=== PATIENT | female | born 1980 | race Caucasian/White ===

== ENCOUNTER 2019-02-25 04:44 | Emergency (ER) | payer MEDICAID ==
[~2019-02-25] VITALS: Ht 154.9 cm; Wt 72.6 kg
[2019-02-25 04:48] VITALS: Ht 154.9 cm; Wt 72.6 kg
[2019-02-25 06:06] LABS: PLATELET COUNT 274 x10^3mcL (130-400); RED CELL DISTRIBUTION WIDTH 13.7 % (11.5-14.5)
[2019-02-25 06:15] LABS: CALCIUM 9.4 mg/dL (8.5-10.1); CHLORIDE SERUM 109 mmol/L (98-107); CREATININE SERUM 0.9 mg/dL (0.6-1.0); GFR1 > 60 mL/min; GLUCOSE SERUM 102 mg/dL (74-106); POTASSIUM SERUM 4.6 mmol/L (3.5-5.1); SODIUM SERUM 141 mmol/L (136-145)
[2019-02-25 06:19] LABS: ALBUMIN 3.4 g/dL (3.4-5.0); ALKALINE PHOSPHATASE 86 U/L (46-116); ALT/SGPT 31 U/L (14-59); AST/SGOT 18 U/L (15-37); BILIRUBIN TOTAL 0.2 mg/dL (0.20-1.00); LIPASE 113 IU/L (73-393); TOTAL PROTEIN, SERUM 7.2 g/dL (6.4-8.2)
[2019-02-25 08:06] VITALS: BP 141/78
== END 2019-02-25 08:06 | disposition home or self-care (01) ==
LOC: ED 04:44
PROVIDERS: Emergency Medicine
DX: K80.20 Calculus of gallbladder without cholecystitis without obstruction (principal); I10 Essential (primary) hypertension; Z88.0 Allergy status to penicillin
CPT/HCPCS: J1885; J2270; J2405; J7030; Q0092

== ENCOUNTER 2019-03-08 01:01 | Inpatient (IN) | payer MEDICAID ==
[~2019-03-08] VITALS: Ht 152.4 cm; Wt 72.3 kg
[2019-03-08 01:16] VITALS: Ht 152.4 cm; Wt 72.3 kg
--- NOTE | 2019-03-08 01:40 | NUR ---
PT PRESENTS TO THE ED TODAY WITH C/C OF RIGHT UPPER QUADRANT ABD PAIN FOR APPROXIMATELY 12 HOURS. PT REPORTS PAIN RADIATES TO HER RIGHT FLANK. DENIES ANY DYSURIA. PT DOES REPORT THAT SHE HAS GALLBLADDER "PROBLEMS." +N/V/D. PT IS AWAKE AND ALERT, RESP E/U, NAD NOTED. AWAITING MSE.
--- NOTE | 2019-03-08 02:06 | NUR ---
REPORT GIVEN TO DONTRELL MARQUEZ TO ASSUME CARE FOR PT.
--- NOTE | 2019-03-08 02:27 | NUR ---
MSE COMPLETED BY . PT STATES TO PAIN IS MORE THAN 10/10 AT THIS TIME. PT A&OX4,NO ACUTE DSITRESS NOTED, RESP EVEN AND UNLABORED, LAYING IN POSITION OF COMFORT. PT JUST RETURNED FROM RESTROOM AFTER VOMITING. PT PROVIEDED WITH EMESIS BAG AT THSI TIME.
[2019-03-08 02:56] LABS: BASOPHIL % 0.4 % (0-2); PLATELET COUNT 329 x10^3mcL (130-400); RED CELL DISTRIBUTION WIDTH 13.4 % (11.5-14.5)
[2019-03-08 02:58] LABS: CARBON DIOXIDE 24.6 mmol/L (21-32); CHLORIDE SERUM 105 mmol/L (98-107); CREATININE SERUM 0.9 mg/dL (0.6-1.0); GFR1 > 60 mL/min; GLUCOSE SERUM 100 mg/dL (74-106); POTASSIUM SERUM 3.9 mmol/L (3.5-5.1); SODIUM SERUM 138 mmol/L (136-145)
--- NOTE | 2019-03-08 03:02 | NUR ---
ULTRASOUND AT BEDSIDE.
[2019-03-08 03:03] LABS: ALBUMIN 3.9 g/dL (3.4-5.0); ALKALINE PHOSPHATASE 79 U/L (46-116); ALT/SGPT 27 U/L (14-59); AMYLASE 43 U/L (25-115); AST/SGOT 22 U/L (15-37); BILIRUBIN TOTAL 0.3 mg/dL (0.20-1.00); LIPASE 114 IU/L (73-393); TOTAL PROTEIN, SERUM 7.9 g/dL (6.4-8.2)
--- NOTE | 2019-03-08 03:48 | NUR ---
PT STATES EPIGASTRIC PAIN IS 0/10, HOWEVER REMAINS TO HAVE PAIN TO RIGHT UPPER ABD 7/10 AT THIS TIME. ASKED PT IF SHE WOULD LIKE TO HAVE THE MOPRHINE THE PHYSICIAN HAD ORDERED. PT REFUSED.
--- NOTE | 2019-03-08 04:45 | NUR ---
PT LAYING IN POSTIION OF COMFORT,NO LONGER VOMITING. PT STATES TO 4/10 PAIN TO RIGHT UPPER ABD.
--- NOTE | 2019-03-08 05:50 | NUR ---
AT BEDSIDE FOR PLAN OF CARE.
--- NOTE | 2019-03-08 06:05 | NUR ---
PT DOES NOT RECALL HOME HTN MEDICATION.
--- NOTE | 2019-03-08 06:34 | NUR ---
PT. AMBULATATED TO THE RESTROOM WITH STEADY GAIT,
--- NOTE | 2019-03-08 06:44 | NUR ---
PT AMBULATED TO AND FROM RESTROOM WITH STEADAY GAIT.
--- NOTE | 2019-03-08 07:30 | NUR ---
REPORT CALLED TO DONTRELL PRITCHARD TO ASSUME CARE OF PT.
--- NOTE | 2019-03-08 07:43 | NUR ---
PT TRANSFERRED TO MED/SURG BED 258B VIA GURNEY WITH EMT DONY. PT A&OX4, NO ACUTE DISTRESS NOTED, RESP EVEN AND UNLABORED. TRANSFERRED WITH OUT INCIDENCE.
--- NOTE | 2019-03-08 08:15 | NUR ---
ADMITTED THIS 38 Y/O FEMALE FROM ER VIA [facility] FOR RUQ PAIN, NAUSEA, VOMITING. ALERT AND ORIENTED X4. STATED " PAIN IS 4/10 ( "BETTER NOW"). ADMISSION CARE DONE. REVIEWED USE OF BED CONTROLS, USE OF CALL LIGHT AND CONTROLS, AND WHERE THE BATHROOM IS. STATED UNDERSTANDING. CALL PANIAGUA WITHIN REACH. BED LOW AND LOCKED.
--- NOTE | 2019-03-08 08:53 | NUR ---
SEEN BY REMY CAZARES. NS AT 100CC/HR INITIATED. NPO INSTRUCTED TO PATIENT.
[2019-03-08 11:31] VITALS: BP 139/91
--- NOTE | 2019-03-08 12:53 | NUR ---
IN BED RESTING. SON VISITED. DENIES ANY DISCOMFORT.
--- NOTE | 2019-03-08 14:49 | NUR ---
FAMILY VISITING AT THIS TIME. DENIES ANY DISCOMFORT AT THIS TIME. TOLARATED FULL LIQUID LUNCH.
[2019-03-08 16:57] VITALS: BP 139/74
--- NOTE | 2019-03-08 18:20 | NUR ---
DENIES ANY PAIN OR NAUSEA.
[2019-03-08 19:17] VITALS: BP 133/77
--- NOTE | 2019-03-08 19:48 | NUR ---
AWAKE AND ALERT, ORIENTED TO NAME, PLACE, TIME AND SITUATION. SPEECH CLEAR AND APPROPRIATE. HOB ELEVATED 30 DEG. BREATHING EVEN AND UNLABORED ON ROOM AIR. DENIES HAVING ABD PAIN OR NAUSEA AT THIS TIME. FAMILY MEMBERS IN ROOM. IVF INFUSING WELL.
--- NOTE | 2019-03-08 22:46 | NUR ---
awake and alert, breathing even and unlabored. ivf infusing well. denies having abd pain at this time. call light within easy reach. instructed need urine specimen. family members in room.
[2019-03-08 23:54] LABS: microscopic required? NO
[2019-03-09 00:05] LABS: urine erythrocyte NEGATIVE (NEGATIVE)
[2019-03-09 00:46] LABS: AMPHETAMINE QUAL UR NONE DETECTED (See below)
[2019-03-09 05:58] VITALS: BP 136/83
--- NOTE | 2019-03-09 06:13 | NUR ---
awake and alert, breathing even and unlabored. denies having pain. ivf infusing well. iv site free from erythema or swelling.
--- NOTE | 2019-03-09 07:15 | NUR ---
RECEIVED PT FROM NIGHT NURSE. PT IS LAYING DOWN IN BED WITH HOB UP. PT LOOKS TO BE IN NO ACUTE DISTRESS AND DENIES ANY PAIN AT THIS TIME. IV SITE PATENT WITH NO SIGNS OF ERYTHEMA OR SWELLING. RESPIRATIONS EVEN AND UNLABORED ON ROOM AIR. BED IN LOWEST POSITION, CALL LIGHT WITHIN REACH. WILL CONTINUE TO MONITOR.
--- NOTE | 2019-03-09 07:24 | NUR ---
AWAKE AND ALERT, IN NO ACUTE DISTRESS. ENDORSED TO NURSE KATHERINE
[2019-03-09 08:09] VITALS: BP 136/90
--- NOTE | 2019-03-09 15:20 | NUR ---
PT IS LAYING DOWN IN BED WITH HOB UP TALKING WITH FAMILY. PT LOOKS TO BE IN NO ACUTE DISTRESS AT THIS TIME AND DENIES ANY PAIN. IV SITE PATENT WITH NO SIGNS OF ERYTHEMA OR SWELLING WITH IV FLUIDS INFUSING. FAMILY MEMBERS AT BEDSIDE. CALL LIGHT WITHIN REACH. WILL CONTINUE TO MONITOR.
--- NOTE | 2019-03-09 17:10 | NUR ---
PT IS LAYING DOWN IN BED WITH HOB UP TALKING WITH FAMILY MEMBER. PT LOOKS TO BE IN NO ACUTE DISTRESS AT THIS TIME. FINISHED PUSHING IV HYDRALYZINE. FAMILY MEMBERS AT BEDSIDE. WILL ENDORSE TO ONCOMING SHIFT.
[2019-03-09 18:15] VITALS: BP 160/103
--- NOTE | 2019-03-09 18:20 | NUR ---
NOTIFIED OF HIGH BLOOD PRESSURE.
[2019-03-09 19:16] VITALS: BP 145/90
[2019-03-09] MEDS ORDERED: EPZICOM1 TAB (19:22)
[2019-03-09] MEDS ORDERED: TRA100 PO (19:22)
--- NOTE | 2019-03-09 19:27 | NUR ---
PT'S FAMILY MEMBER SHOWED PT HOME MEDICATION PILL BOTTOLE. PT TAKES LABETALOL 100MG TID. UPDATED MEDICATION RECONCILIATION. INFORMED DR. NOLASCO.
--- NOTE | 2019-03-09 20:00 | NUR ---
AWAKE AND ALERT, ORIENTED TO NAME, PLACE, TIME AND SITUATION. SPEECH CLEAR AND APPROPRIATE. BREATHING EVEN AND UNLABORED ON ROOM AIR. BP 145/90, SC 74 POST HYDRALAZINE IVP BY DAY SHIFT NURSE. TELEBOX RETURNED TO MONITOR STATION. IVF INFUSING WELL. FAMILY MEMBERS IN ROOM.
--- NOTE | 2019-03-09 22:55 | NUR ---
awake and alert, watching tv. breathing even and unlabored on room air. call light within easy reach.
[2019-03-10 04:42] VITALS: BP 121/82
--- NOTE | 2019-03-10 07:10 | NUR ---
RECEIVED REPORT FROM ERASMO JON, PT IN BED IN NO ACUTE DISTRESS
--- NOTE | 2019-03-10 07:20 | NUR ---
AWAKE AND ALERT, BREATHING EVEN AND UNLABORED. IN NO ACUTE DISTRESS. ENDORSED TO NURSE THI
--- NOTE | 2019-03-10 07:25 | NUR ---
PT IN BED, AXOX4, VERBAL, IN NO ACUTE DISTRESS, ABLE TO MAKE NEEDS KNOWN, CALM AT THIS TIME, NO FACIAL DROOP/SLURRED SPEECH, DENIED PAIN/DISCOMFORT, DENIED KUHN/CP/PALPITATION, DENIED N/V/D, RESP EVEN, NO SOB/COUGH, CHEST RISE SYMMETRICALLY, MEDSURG, ABD FLAT AND NON-TENDER TO TOUCH, BS ACTIVE X 4, PALP PULSES, CAP REFILL < 3S, AMBULATORY, CONTINENT, IV PATENT AND FLUSHING WELL, DRESSING CDI, SKIN C/D/W, SEE SKIN ASSESSMENT, ALL NEEDD ADRESSED AT THIS TIME, SAFETY PROTOCOL FOLLOWED, CONTINUE TO MONITOR
[2019-03-10 07:51] LABS: CALCIUM 9.3 mg/dL (8.5-10.1); CARBON DIOXIDE 25.7 mmol/L (21-32); CHLORIDE SERUM 107 mmol/L (98-107); CREATININE SERUM 0.9 mg/dL (0.6-1.0); GFR1 > 60 mL/min; GLUCOSE SERUM 79 mg/dL (74-106); POTASSIUM SERUM 3.8 mmol/L (3.5-5.1); SODIUM SERUM 141 mmol/L (136-145)
[2019-03-10 07:55] LABS: BASOPHIL % 0.5 % (0-2); PLATELET COUNT 294 x10^3mcL (130-400); RED CELL DISTRIBUTION WIDTH 13.6 % (11.5-14.5)
[2019-03-10 08:04] VITALS: BP 127/84
--- NOTE | 2019-03-10 09:55 | NUR ---
AM MEDGIVEN PER EMAR, TAKEN WELL, NO ASE NOTED AT THIS TIME, EDUCATION R/T MED, ASE AND CONDITION GIVEN TO PT, VERBALLY UNDERSANDING, CONTINUE TO MONITOR
--- NOTE | 2019-03-10 10:39 | NUR ---
DR PINEDA CALLED R/T PT NEW ORDER, NEW ORDER OBTAINED, PT MADE AWARE OF NPO UNTILN FURTHER NOTICE AND HIDA SCAN STAT, CHARGE NURSE CRISTIANA MADE AWARE
--- NOTE | 2019-03-10 11:17 | NUR ---
NUCLEAR STAFF CALLED AND CONFIRM HIDA SCAN WILL BE DOEN AT 1600 TODAY, PT MADE AWARE
--- NOTE | 2019-03-10 14:23 | NUR ---
PT SLEEPING IN BED, IN NO APPARENT DISTRESS, IV INFUSING WELL, CONTINUE TO MONITOR
--- NOTE | 2019-03-10 16:07 | NUR ---
Discount pharmacy card and list to low cost medical clinics given to patient by Martina.
--- NOTE | 2019-03-10 16:09 | NUR ---
PT WENT FOR HIDA SCAN VIA WC, PT IN NO ACUTE DISTRESS, HEPLOCKED
[2019-03-10 16:51] VITALS: BP 133/80
--- NOTE | 2019-03-10 17:42 | NUR ---
RECEIVED REPORT FROM RADIATION DEPARTMENT RN R/T HIDA SCAN PROGRESS, PT WILL NEED TO HAVE DELAYED PICTURE TAKEN AGAINN LATER D/T GALLBLADDER DID NOT SHOW ON PICTURE AT 1ST TIME, DR PINEDA TALKED TO PT IN RADIATION DEPARTMENT,
--- NOTE | 2019-03-10 17:52 | NUR ---
PT BACK TO ROOM, IN NO ACUTE DISTRESS, VOID X 1
--- NOTE | 2019-03-10 18:04 | NUR ---
CALLED AND TALKED TO BLADE GRADER OPERATOR YIN CANCINO R/T PT NPO STATUS SINCE LUNCH FOR POSSIBLE SURERY TOMORROW MORNING, NEW ORDER OBTAINED, PT MADE AWARE, CONTINUE TO MONITOR
--- NOTE | 2019-03-10 18:34 | NUR ---
PT LEFT FOR HIDA SCAN VIA WC, IN NO ACUTE DISTRESS, DENIED PAIN/DISCOMFORT AT THIS TIME
--- NOTE | 2019-03-10 19:45 | NUR ---
RECEIVED PT IN BED WITH FAMILY AT BEDSIDE. PT IS AWAKE, ALERT, ORIENTED X4. LUNG SOUNDS CLEAR. BREATHING EASILY ON ROOM AIR. BS ACTIVE IN ALL FOUR QUADS. ABD IS OBESE NON DISTENDED. NO ABD PAIN NOTED. PT IS VOIDING FREELY WITH BRP. IV TO LAC, INTACT. SHIFT ASSESSMENT COMPLETED. CALL LIGHT WITHIN REACH. BED IS IN LOWEST POSITION. WILL CONTINUE TO MONITOR CLOSELY.
--- NOTE | 2019-03-10 20:15 | NUR ---
D5NS HUNG AT THIS TIME TO LAC, INFUSING WELL AT THIS TIME.
[2019-03-10 20:56] VITALS: BP 128/84
--- NOTE | 2019-03-10 21:10 | NUR ---
LEFT MESSAGE FOR DR. PINEDA CONCERNING RESULTS FOR HIDA SCAN. AWAITING CALL BACK.
--- NOTE | 2019-03-10 21:25 | NUR ---
DR PINEDA CALLED BACK AND IS AWARE OF HIDA SCAN RESULTS. KEEP PT NPO ACCEPT MEDS AFTER MIDNIGHT. PT AWARE. WILL CONTINUE TO MONITOR CLOSELY.
--- NOTE | 2019-03-11 03:58 | NUR ---
PT APPEARS TO BE SLEEPING IN NO DISTRESS. IVF ONGOING. CALL LIGHT WITHIN REACH. BED IS IN LOWEST POSITION. WILL CONTINUE TO MONITOR CLOSELY.
[2019-03-11 05:13] VITALS: BP 107/71
--- NOTE | 2019-03-11 06:30 | NUR ---
CHECK LIST STARTED. CONSENT PRINTED AND IN CHART. HCG WIPES GIVEN TO PT, CURRENTLY USING THEM AT THIS TIME. ALL NEEDS TENDED TO. WILL ENDORSE TO INCOMING SHIFT.
[2019-03-11 06:45] LABS: BASOPHIL % 0.7 % (0-2); PLATELET COUNT 286 x10^3mcL (130-400); RED CELL DISTRIBUTION WIDTH 13.4 % (11.5-14.5)
--- NOTE | 2019-03-11 06:55 | NUR ---
OR TRANSPORT HERE TO [facility]. IV HL. PT BELONGINGS KEPT IN ROOM. PT LEAVES IN NO DISTRESS.
[2019-03-11 07:11] LABS: CALCIUM 9.5 mg/dL (8.5-10.1); CARBON DIOXIDE 26.1 mmol/L (21-32); CHLORIDE SERUM 108 mmol/L (98-107); GFR1 > 60 mL/min; GLUCOSE SERUM 91 mg/dL (74-106); POTASSIUM SERUM 4.2 mmol/L (3.5-5.1); SODIUM SERUM 141 mmol/L (136-145)
--- NOTE | 2019-03-11 07:20 | NUR ---
PT REPORT RECIEVED BUT PT IS CURRENTLY IN OR FOR SURGERY, PT WENT DOWN AT 0630 PER NOC NURSE. WILL F/U.
--- NOTE | 2019-03-11 09:06 | NUR ---
ALL MORNING MEDS HELD AND NOT ABLE TO SCAN PT D/T PT STILL IN OR FOR SURGERY.
--- NOTE | 2019-03-11 10:30 | NUR ---
PT RECIEVED FROM OR NURSE GILLETTE S/P SINDI PEGUERO. PT STABLE, VS WNL. PT ON 3 LMP NC AT THIS TIME WITH NO SOB NOTED. PT STILL ASLEEP FROM PAIN MEDS GIVEN IN OR. X4 ABD INCISIONS NOTED, CLOSED WITH DERMABOND. NO DRAINAGE OR REDNESS NOTED TO SITES. SAFETY PRECAUTIONS IN PLACE, CALL LIGHT WITHIN REACH, WILL MONITOR.
[2019-03-11 14:33] VITALS: BP 159/87
--- NOTE | 2019-03-11 14:44 | NUR ---
DILAUDID GIVEN PER EMAR FOR C/O 10 ABD PAIN. WILL REASSESS.
[2019-03-11 17:18] VITALS: BP 131/84
--- NOTE | 2019-03-11 17:30 | NUR ---
NORCO GIVEN FOR C/O 12/25 ABD PAIN. WILL REASSESS.
--- NOTE | 2019-03-11 18:43 | NUR ---
PT STABLE AT THIS TIME. NO DISTRESS NOTED. VS WNL AND ALL CARES TOLERATED WELL. ABD INCISIONS INTACT, CLEAR, AND DRY. IV INTACT AND PATENT WITH D5NS RUNNING AT 80ML/HR, NO REDNESS OR INFLAMMATION NOTED. A/O X4 WITH NO KUHN OR DIZZINESS.SAFETY PRECAUTINS IN PLACE, CALL LIGHT WITHIN REACH, WILL ENDORSE TO NIGHT NURSE.
--- NOTE | 2019-03-11 19:30 | NUR ---
PT IS A/O x4. ON MED SURG. DENIES ANY CHEST PAIN OR PRESSURE. PULSES ARE PRESENT. NO EDEMA NOTED. LUNGS ARE CLEAR IN ALL FEILDS. ON RA, DENIES ANY SOB. EQUAL CHEST RISE AND FALL. NO SIGN OF RESP DISTRESS. BOWEL SOUNDS ACTIVE. COMPLAIN OF ABD PAIN D/T POST OP LAP SUDHIR TODAY. 03/27 PAIN, SHARP. NON RADIATING. WILL MEDICATE PER EMAR. 4 ABD INCISIONS NOTED. CLOSED WITH DERMABOND. NO DRAINGE NOTED. IV ON LAC INTACT AND PATENT. NO SIGN OF INFILTRATION OR IRRITATION. FAMILY IS AT BEDSIDE. EDUCATION PROVIDED TO PT ABOUT POST LAP SUDHIR CARE AND IT IS IMPORTANT FOR THE PT TO AMBULATE. WILL CONTINUE TO MONTIOR.
[2019-03-11 20:42] VITALS: BP 131/86
--- NOTE | 2019-03-11 22:12 | NUR ---
PT GOT UP TO AMBULATE WITH FAMILY AFTER PAIN MEDICATION WAS GIVEN. PT THREW UP IN THE [address] WAY. WAS ASSITED BACK INTO HER ROOM. PT STATED HER THROWING UP ALIVIATED THE DISCOMFORT IN HER STOMACH. OFFERED PT ZOFRAN BUT SHE REFUSED. PT STATES SHE JUST WANTS TO REST. BED IS AT LOWEST SETTING. ICE WAS OFFERED. WILL CONTINUE TO [facility].
--- NOTE | 2019-03-12 00:52 | NUR ---
PT IS RESTING IN BED WITH BOTH EYES CLOSED. BREATHING EVEN AND UNLABORED. NO SIGN OF DISTRESS NOTED. BED IS AT LOWEST SETTING. CALL LIGHT WITHIN REACH. WILL CONTINUE TO MONITOR.
--- NOTE | 2019-03-12 02:36 | NUR ---
PT REQUESTING PAIN SHOT, VS STABLE. PAIN 9/10. MEDICATED WITH DILAUDID 1MG IVP SLOW, IV SITE ON LT AC, NO S/S INFILTRATION. CALL LIGHT WITHIN REACHED.
[2019-03-12 05:12] VITALS: BP 118/67
--- NOTE | 2019-03-12 06:14 | NUR ---
PT IS RESTING IN BED WITH BOTH EYES CLOSED. BREATHING EVEN AND UNLBORED. NO SIGN OF DISTRESS NOTED. NO ACUTE EVENT OCCURED AT NIGHT. BED IS AT LOWEST SETTING. CALL LIGHT WITHIN REACH. WILL ENDORSE TO AM NURSE.
[2019-03-12 06:47] LABS: BASOPHIL % 0.3 % (0-2); PLATELET COUNT 293 x10^3mcL (130-400); RED CELL DISTRIBUTION WIDTH 13.8 % (11.5-14.5)
[2019-03-12 07:12] LABS: BILIRUBIN TOTAL 0.4 mg/dL (0.20-1.00); CALCIUM 9.6 mg/dL (8.5-10.1); CARBON DIOXIDE 25.3 mmol/L (21-32); CREATININE SERUM 1.1 mg/dL (0.6-1.0); POTASSIUM SERUM 4.9 mmol/L (3.5-5.1); TOTAL PROTEIN, SERUM 6.6 g/dL (6.4-8.2)
[2019-03-12 07:14] LABS: ALBUMIN 3.1 g/dL (3.4-5.0)
--- NOTE | 2019-03-12 07:20 | NUR ---
RECEIVED PT FROM MARILEE RN. PT AA/OX4, LAYING IN BED. NO S/S OF ACUTE DISTRESS. SPEAKS [place]. DENIES PAIN AT THIS TIME. NO SOB ON ROOM AIR. EDUCATED ON USE/PURPOSE OF I.S. VERBALIZED UNDERSTANDING, REACHING 500ML, GOAL 1000ML. MED SURG. NO CHEST PAIN. LUNG SOUNDS CTA BILATERALLY ON ROOM. RR EVEN/SHALLOW/UNLABORED. DENIES ABD. PAIN AT THIS TIME. REPORTS INTERMITTENT N/V. DENIES AT THIS TIME. AMBULATORY WITH FULL ROM GAIT STEADY. VOIDS FREELY. ABD. INCISIONS X4, S/P LAP SUDHIR ON 03/11. APPEAR CLEAN/DRY, SKIN COLOR SURROUNDING WOUNDS APPEARS NORMAL FOR ETHNICITY. IV WNL TO LAC, PATENT AND FLUSHES WELL. SITE WNL. IV FLUIDS FLOWING. INSTRUCTED TO USE CALL LIGHT TO CALL FOR ASSISTANCE PRN. VERBALIZED UNDERSTANDING. BED IN LOW POSITION. CALL LIGHT WITHIN REACH. SIDE RAILS UPX 2. WILL CONTINUE TO MONITOR.
[2019-03-12 08:06] VITALS: BP 117/66
[2019-03-12 11:46] VITALS: BP 123/76
--- NOTE | 2019-03-12 12:00 | NUR ---
PT AMBULATED IN HALLWAYS AND TO RESTROOM, GAIT STEADY. TOLERATED ACTIVITY WELL. C/O ABD. PAIN TO SURGICAL SITE, RATES 5/10. DECLINED TO PAIN MEDICATION AT THIS TIME. PT REPORTS RELIEF BY RESTING/LAYING IN BED/REPOSITIONING. NO S/S OF ACUTE DISTRESS. NO N/V. NO SOB ON ROOM AIR. AA/OX4. DERMABOND INTACT TO ABD. INCISIONS X4. NO DRAINAGE. BED IN LOW POSITION. CALL LIGHT WITHIN REACH. WILL CONTINUE TO MONITOR.
--- NOTE | 2019-03-12 14:22 | NUR ---
PT COMPLAINT OF ABD. PAIN TO SURGICAL SITE, RATES 8/10. CONTINUOUS. WORSE WITH MOVEMENT/AMBULATION. VS STABLE. O2 SAT 99% ON ROOM AIR. NO S/S OF ACUTE DISTRESS. NO SOB. GIVEN IV PAIN MED, SEE AUG. /OX4. LAYING IN BED. BED IN LOW POSITION. CALL LIGHT WITHIN REACH. WILL CONTINUE TO MONITOR.
--- NOTE | 2019-03-12 15:27 | NUR ---
PT REPORTS PAIN 2/10 AT THIS TIME TO ABD. REPORTS TOLERABLE. NO S/S OF ACUTE DISTRESS. NO N/V. WILL CONTINUE TO MONITOR.
[2019-03-12 16:43] VITALS: BP 115/66
--- NOTE | 2019-03-12 18:30 | NUR ---
PT COMPLAINT OF ABD. PAIN AT SURGICAL SITES. RATES /. CONTINUOUS. WORSE AFTER AMBULATING IN HALLWAYS. DESCRIBES ACHING. GIVEN PO PAIN MED. SEE MAR. PT LAYING IN BED. TOLERATING FULL LIQUID DIET WELL. NO N/V. NO SOB ON ROOM AIR. NO CHEST PAIN. DERMABOND TO SURGICAL WOUNDS X4 CDI. IV WNL TO LAC, PATENT AND FLUSHES WELL. BED IN LOW POSITION. CALL LIGHT WITHIN REACH. WILL ENDORSE TO ONCOMING SHIFT.
--- NOTE | 2019-03-12 19:30 | NUR ---
RECIEVED PT IN NO ACUTE DISTRESS. AOX4. MED SURG. BREATHING E/U. BOWEL SOUNDS HYPOACTIVE. AMBULATION ENCOURAGED. 4 ABD LAP SITES WITH DERMABOND, CDI. S/P LAP SUDHIR. C/O ABD INCISIONAL PAIN 09/25, RECENTLY MEDICATED. IV TO LAC, PATENT. BED IN LOWEST POSITION, 2 SIDE RAILS UP, CALL LIGHT IN REACH. INSTRUCTED TO CALL FOR ASSISTANCE.
[2019-03-12 20:10] VITALS: BP 135/81
--- NOTE | 2019-03-13 02:17 | NUR ---
RESTING IN BED WITH EYES CLOSED. BREATHING E/U. NO ACUTE DISTRESS NOTED. WILL ENDORSE TO ONCOMING RN.
[2019-03-13 05:11] VITALS: BP 154/94
--- NOTE | 2019-03-13 06:16 | NUR ---
C/O ABD PAIN 11/25 THIS AM. ADMINISTERED PRN TYLENOL PER EMAR. PT DENIES PASSING GAS/BM OVERNIGHT. NO ACUTE DISTRESS NOTED. NO ACUTE CHANGES. WILL ENDORSE TO ONCOMING RN.
[2019-03-13 06:54] LABS: BASOPHIL % 0.6 % (0-2); PLATELET COUNT 296 x10^3mcL (130-400); RED CELL DISTRIBUTION WIDTH 13.9 % (11.5-14.5)
--- NOTE | 2019-03-13 07:05 | NUR ---
RECEIVED PT FROM MARILEE RN. PT AA/OX4. LAYING IN BED. NO S/S OF ACUTE DISTRESS. REPORTS PAIN TO ABD. DECREASING. RATES /. TOLERABLE. NO N/V. NO SOB ON ROOM AIR. NO CHEST PAIN. CALM/COOPERATIVE. NO FEVER. NO CHILLS. IV WNL TO LAC, IV FLUIDS FLOWING. INSTRUCTED TO USE CALL LIGHT TO CALL FOR ASSISTANCE PRN. VERBALIZED UNDERSTANDING. BED IN LOW POSITION. CALL LIGHT WITHIN REACH. WILL CONTINUE TO MONITOR.
[2019-03-13 07:20] LABS: CALCIUM 10.1 mg/dL (8.5-10.1); CARBON DIOXIDE 26.9 mmol/L (21-32); CHLORIDE SERUM 107 mmol/L (98-107); CREATININE SERUM 0.9 mg/dL (0.6-1.0); GFR1 > 60 mL/min; GLUCOSE SERUM 91 mg/dL (74-106); POTASSIUM SERUM 3.8 mmol/L (3.5-5.1); SODIUM SERUM 141 mmol/L (136-145)
[2019-03-13] MEDS ORDERED: NOR5 PO (08:10)
[2019-03-13 08:26] VITALS: BP 137/90
--- NOTE | 2019-03-13 12:32 | NUR ---
PT C/O OF DIFFICULTY HAVING BM. REPORTS PASSING GAS ORALLY, NOT RECTALLY. C/O CONSTIPATION. 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 PT GIVEN PO MOM, SEE MAR. PT EATING REGULAR DIET FOR LUNCH. DENIES N/V. NO ABD. PAIN AT THIS TIME. HAS AMBULATED IN HALLWAYS SEVERAL TIMES, TOLERATING ACTIVITY WELL. CALM/COOPERATIVE. BED IN LOW POSITION. CALL LIGHT WITHIN REACH. WILL CONTINUE TO MONITOR.
[2019-03-13 16:24] VITALS: BP 124/85
--- NOTE | 2019-03-13 16:58 | NUR ---
PT DISCHARGED TO HOME. AWAKE, ALERT, ORIENTED X4. NO S/S OF ACUTE DISTRESS. ABD. INCISIONS X4, COVERED BY DERMABOND. CDI. NO DRAINAGE. NO N/V. NO ABD. PAIN. NO N/V. VS STABLE. CALM/COOPERATIVE. DISCHARGE EDUCATION PROVIDED TO PATIENT. INSTRUCTED TO FOLLOW UP WITH PCP WITHIN 1WK AND DR. PINEDA IN ONE WEEK, PT PROVIDED WITH DR. PINEDA OFFICE TELEPHONE NUMBER. VERBALIZED UNDERSTANDING. PRESCRIPTION PROVIDED TO PT. IV WNL TO LAC, REMOVED. CATHETER IN TACT. SITE WNL. BELONGINGS WITH PATIENT. SEE CHART FOR DISCHARGE PICTURE OF SURGICAL WOUNDS. TAKEN BY WHEELCHAIR TO JUANIS, TAKEN BY GREGOR ALVARADO.
== END 2019-03-13 17:00 | disposition home or self-care (01) | DRG 263 ==
LOC: ED 01:01 → MU 06:04
PROVIDERS: Emergency Medicine; General Practice; Surgery; ADMIT Internal Medicine
PROC: 0FT44ZZ Resection of Gallbladder, Percutaneous Endoscopic Approach (ICD-10-PCS; principal; 2019-03-11 07:30)
DX: K80.00 Calculus of gallbladder with acute cholecystitis without obstruction (principal); E66.9 Obesity, unspecified; I10 Essential (primary) hypertension; Z68.30 Body mass index [BMI] 30.0-30.9, adult
CPT/HCPCS: 78226; A9537; C9113; G0378; J0330; J0360; J1170; J1885; J1956; J2001; J2175; J2250; J2405; J2704; J2710; J3010; J3490; J7030; J7042; J7120; Q0092